=== PATIENT | male | born 1960 | race Caucasian/White ===

== ENCOUNTER 2017-11-28 16:45 | Emergency (ER) | payer SELFPAY ==
[~2017-11-28] VITALS: Ht 175.3 cm; Wt 87.0 kg
[2017-11-28 16:51] VITALS: BP 141/68; PULSE 100; RESP 22; TEMP 98.9; O2SAT 96
[2017-11-28 17:53] VITALS: BP 130/67; PULSE 85; RESP 16; O2SAT 97
[2017-11-28] MEDS ORDERED: MORPHINE SULFATE 4 MG/ML INJ IV PUSH ONE (18:00)
[2017-11-28] MEDS ORDERED: CLINDAMYCIN 600 MG/NS PREMIX 50 ML IV ONE (18:00)
[2017-11-28] MEDS ORDERED: METOCLOPRAMIDE HCL 10 MG/2 ML VIAL IV PUSH ONE (18:00)
[2017-11-28] MEDS ORDERED: KETOROLAC TROMETHAMINE 30 MG/ML (IVP) VIAL IV PUSH ONE (18:00)
[2017-11-28 18:23] LABS: AUTOMATED NEUTROPHIL # 8.7 TH/MM3 (1.8-7.7); BASOPHIL % 0.4 % (0.0-2.0); EOSINOPHIL # 0.2 TH/MM3 (0-0.4); EOSINOPHIL % 1.7 % (0.0-4.0); HEMATOCRIT 45.5 % (39.0-51.0); HEMOGLOBIN 15.4 GM/DL (13.0-17.0); LYMPH % 18.2 % (9.0-44.0); LYMPHOCYTE # 2.2 TH/MM3 (1.0-4.8); MEAN CELL VOLUME 94.9 FL (80.0-100.0); MEAN CORPUSCULAR HEMOGLOBIN 32.2 PG (27.0-34.0); MEAN CORPUSCULAR HGB CONC 33.9 % (32.0-36.0); MEAN PLATELET VOLUME 7.9 FL (7.0-11.0); MONO % 8.5 % (0.0-8.0); NEUT % 71.2 % (16.0-70.0); PLATELET COUNT 275 TH/MM3 (150-450); RED BLOOD COUNT 4.79 MIL/MM3 (4.50-5.90); WHITE BLOOD COUNT 12.3 TH/MM3 (4.0-11.0)
[2017-11-28 18:39] LABS: BICARBONATE 23.8 MEQ/L (21.0-32.0); CALCIUM 8.2 MG/DL (8.5-10.1); CREATININE 0.76 MG/DL (0.60-1.30)
--- NOTE | 2017-11-28 19:02 | RADRPT ---
EXAM DATE: 11/28/2017 6:30 PM EDT AGE/SEX: 56 years / Male INDICATIONS: Pain in right lower leg anterior. Fell 1 week ago. Swelling. Abrasion. CLINICAL DATA: This is the patient's initial encounter. Patient reports that signs and symptoms have been present for 1 week and indicates a pain score of 8/10. MEDICAL/SURGICAL HISTORY: None. None. COMPARISON: No prior exams available for comparison. FINDINGS: Bony structures are intact and in normal alignment. Osseous density is normal. Soft tissues are unre markable. No radiopaque foreign bodies seen. CONCLUSION: No acute bony abnormality. Electronically signed by: Ilia Jeffery MD 11/28/2017 7:01 PM EDT
--- NOTE | 2017-11-28 20:50 | RADRPT ---
EXAM DATE: 11/28/2017 8:37 PM EDT AGE/SEX: 56 years / Male INDICATIONS: Right leg swelling. CLINICAL DATA: This is the patient's initial encounter. Patient reports that signs and symptoms have been present for 1 day and indicates a pain score of 9/10. MEDICAL/SURGICAL HISTORY: . Right leg swelling. ADHD. None. COMPARISON: No prior exams available for comparison. TECHNIQUE: Venous ultrasound of both lower extremities was performed from the inguinal ligament to t he proximal calf. Real-time, color Doppler and spectral tracing, compression and augmentation techni ques were used. FINDINGS: No evidence of deep venous thrombosis in the right lower extremity including the femoral v ein, popliteal vein, peroneal and posterior tibial veins. CONCLUSION: 1. Negative right lower extremity DVT study. Electronically signed by: Ilia Jeffery MD 11/28/2017 8:49 PM EDT
--- NOTE | 2017-11-28 21:31 | PD ---
Data Data Last Documented VS Vital Signs Date Time Temp Pulse Resp B/P (MAP) Pulse Ox O2 Delivery O2 Flow Rate FiO2 11/28/17 22:59 11/28/17 17:53 85 16 97 Nasal Cannula 11/28/17 16:51 98.9 Orders Orders Complete Blood Count With Diff (11/28/17 17:57) Basic Metabolic Panel (Bmp) (11/28/17 17:57) Blood Culture (11/28/17 17:57) Wound Culture And Gram Stain (11/28/17 17:57) Iv Access Insert/Monitor (11/28/17 17:57) Tibia/Fibula (Ap/Lat) (11/28/17 ) Clindamycin 600 Mg/Ns Premix (Cleocin 60 (11/28/17 18:00) Morphine Inj (Morphine Inj) (11/28/17 18:00) Ketorolac Inj (Toradol Inj) (11/28/17 18:00) Metoclopramide Inj (Reglan Inj) (11/28/17 18:00) Lactic Acid Sepsis Protocol (11/28/17 17:57) Us Leg Venous Doppler (11/28/17 ) Ed Discharge Order (11/28/17 21:47) Labs Laboratory Tests Test 11/28/17 17:53 11/28/17 18:05 White Blood Count 12.3 TH/MM3 Red Blood Count 4.79 MIL/MM3 Hemoglobin 15.4 GM/DL Hematocrit 45.5 % Mean Corpuscular Volume 94.9 FL Mean Corpuscular Hemoglobin 32.2 PG Mean Corpuscular Hemoglobin Concent 33.9 % Red Cell Distribution Width 14.0 % Platelet Count 275 TH/MM3 Mean Platelet Volume 7.9 FL Neutrophils (%) (Auto) 71.2 % Lymphocytes (%) (Auto) 18.2 % Monocytes (%) (Auto) 8.5 % Eosinophils (%) (Auto) 1.7 % Basophils (%) (Auto) 0.4 % Neutrophils # (Auto) 8.7 TH/MM3 Lymphocytes # (Auto) 2.2 TH/MM3 Monocytes # (Auto) 1.0 TH/MM3 Eosinophils # (Auto) 0.2 TH/MM3 Basophils # (Auto) 0.0 TH/MM3 CBC Comment DIFF FINAL Differential Comment Blood Urea Nitrogen 9 MG/DL Creatinine 0.76 MG/DL Random Glucose 82 MG/DL Calcium Level 8.2 MG/DL Sodium Level 141 MEQ/L Potassium Level 3.8 MEQ/L Chloride Level 107 MEQ/L Carbon Dioxide Level 23.8 MEQ/L Anion Gap 10 MEQ/L Estimat Glomerular Filtration Rate 106 ML/MIN Lactic Acid Level 1.7 mmol/L MDM Supervised Visit with JESSICA: Yes Narrative Course I, Dr. Sellers, have reviewed the advance practice practitioner's documentation and am in agreement, met with the patient face to face, made the diagnosis, and the medical decision making was done by me. *My assessment and Findings: Patient seen and examined by me in addition to Edward Mcghee, minimal abscess to the anterior right lower extremity, there is some edema and erythema spreading from this area, he appears well in obvious distress and is suitable for an outpatient trial of antibiotics. Discussed follow-up with a primary care physician and return to ED criteria. Diagnosis Primary Impression: Cellulitis of right leg Scripts Cephalexin (Keflex) 500 Mg Cap 500 MG PO Q8H for Infection for 14 Days, #42 CAP 0 Refills Prov: Steven Sellers MD 11/28/17 Clindamycin (Clindamycin) 300 Mg Cap 300 MG PO Q8HR for Infection for 14 Days, CAP 0 Refills Prov: Steven Sellers MD 11/28/[address] (Diclofenac Sodium DR) 75 Mg Tabdr 75 MG PO BID Y for PAIN SCALE 1 TO 10, #30 TAB 0 Refills Prov: Steven Sellers MD 11/28/17 Condition: Stable Steven Sellers MD Nov 28, 2017 21:31
[2017-11-28] MEDS ORDERED: DICL75TA PO (21:35)
[2017-11-28] MEDS ORDERED: CEPH-460 PO (21:35)
[2017-11-28] MEDS ORDERED: CLIN300C5 PO (21:35)
--- NOTE | 2017-11-28 21:56 | PD ---
HPI Chief Complaint: Skin Problem Time Seen by Provider: 17:51 Travel History International Travel<30 days: No Contact w/Intl Traveler<30days: No Traveled to known affect area: No History of Present Illness HPI 56-year-old male that presents to the ED for evaluation of skin issue to his right leg. Per patient he had an injury about a week ago and he did not think much of it. He had some swelling and bruising. He had an abrasion to the area and then for the past 2 days has been noting more swelling and pain. Per patient he feels like a burning sensation. He denies any chest pain or shortness of breath. He states that the pain is mostly to the anterior aspect of the leg. Warm to the touch. Has been draining. No allergies to medication. No chest pain or shortness of breath. No fevers chills or sweats. Pain per patient is 6 out of 10. Gets worse with weightbearing. Able to ambulate with the work. has no allergies to medication. No other medical issues. Has not seen anybody for this. PFSH Past Medical History ADHD: Yes Past Surgical History Surgical History: No Previous Surgery Social History Alcohol Use: Yes Tobacco Use: Yes Substance Use: No (marijuana) Allergies-Medications (Allergen,Severity, Reaction): Coded Allergies: No Known Allergies (Verified Allergy, Unknown, 11/28/17) Reported Meds & Prescriptions Reported Meds & Active Scripts Active Keflex (Cephalexin) 500 Mg Cap 500 Mg PO Q8H 14 Days Clindamycin (Clindamycin HCl) 300 Mg Cap 300 Mg PO Q8HR [address] (Diclofenac Sodium) 75 Mg Tabdr 75 Mg PO BID PRN Review of Systems Except as stated in HPI: all other systems reviewed are Neg Physical Exam Narrative GENERAL: SKIN: Warm and dry. Patient has 1+ pitting edema in the right leg compared to the left. Patient does have swelling and pain on the anterior aspect of the right leg. Area of abrasion where has purulence is about 1 cm in diameter with erythema which is about 3-4 cm in diameter. Warm to the touch. No other sign of infection noted. No abscess noted. No purulence noted. No lymphadenopathy noted. HEAD: Atraumatic. Normocephalic. EYES: Pupils equal and round. No scleral icterus. No injection or drainage. ENT: No nasal bleeding or discharge. Mucous membranes pink and moist. Tongue is midline. No uvula deviation. NECK: Trachea midline. No JVD. CARDIOVASCULAR: Regular rate and rhythm. No murmurs, S3, S4. RESPIRATORY: No accessory muscle use. Clear to auscultation. Breath sounds equal bilaterally. GASTROINTESTINAL: Abdomen soft, non-tender, nondistended. Hepatic and splenic margins not palpable. MUSCULOSKELETAL: Extremities without clubbing, cyanosis, or edema. No obvious deformities. Full range of motion of the upper and lower extremities bilaterally. 2+ pulses bilaterally. NEUROLOGICAL: Awake and alert. No obvious cranial nerve deficits. Motor grossly within normal limits. Five out of 5 muscle strength in the arms and legs. Normal speech. PSYCHIATRIC: Appropriate mood and affect; insight and judgment normal. Data Data Last Documented VS Vital Signs Date Time Temp Pulse Resp B/P (MAP) Pulse Ox O2 Delivery O2 Flow Rate FiO2 11/28/17 17:53 85 16 130/67 (88) 97 Nasal Cannula 11/28/17 16:51 98.9 Orders Orders Complete Blood Count With Diff (11/28/17 17:57) Basic Metabolic Panel (Bmp) (11/28/17 17:57) Blood Culture (11/28/17 17:57) Wound Culture And Gram Stain (11/28/17 17:57) Iv Access Insert/Monitor (11/28/17 17:57) Tibia/Fibula (Ap/Lat) (11/28/17 ) Clindamycin 600 Mg/Ns Premix (Cleocin 60 (11/28/17 18:00) Morphine Inj (Morphine Inj) (11/28/17 18:00) Ketorolac Inj (Toradol Inj) (11/28/17 18:00) Metoclopramide Inj (Reglan Inj) (11/28/17 18:00) Lactic Acid Sepsis Protocol (11/28/17 17:57) Us Leg Venous Doppler (11/28/17 ) Ed Discharge Order (11/28/17 21:47) Labs Laboratory Tests Test 11/28/17 17:53 11/28/17 18:05 White Blood Count 12.3 TH/MM3 Red Blood Count 4.79 MIL/MM3 Hemoglobin 15.4 GM/DL Hematocrit 45.5 % Mean Corpuscular Volume 94.9 FL Mean Corpuscular Hemoglobin 32.2 PG Mean Corpuscular Hemoglobin Concent 33.9 % Red Cell Distribution Width 14.0 % Platelet Count 275 TH/MM3 Mean Platelet Volume 7.9 FL Neutrophils (%) (Auto) 71.2 % Lymphocytes (%) (Auto) 18.2 % Monocytes (%) (Auto) 8.5 % Eosinophils (%) (Auto) 1.7 % Basophils (%) (Auto) 0.4 % Neutrophils # (Auto) 8.7 TH/MM3 Lymphocytes # (Auto) 2.2 TH/MM3 Monocytes # (Auto) 1.0 TH/MM3 Eosinophils # (Auto) 0.2 TH/MM3 Basophils # (Auto) 0.0 TH/MM3 CBC Comment DIFF FINAL Differential Comment Blood Urea Nitrogen 9 MG/DL Creatinine 0.76 MG/DL Random Glucose 82 MG/DL Calcium Level 8.2 MG/DL Sodium Level 141 MEQ/L Potassium Level 3.8 MEQ/L Chloride Level 107 MEQ/L Carbon Dioxide Level 23.8 MEQ/L Anion Gap 10 MEQ/L Estimat Glomerular Filtration Rate 106 ML/MIN Lactic Acid Level 1.7 mmol/L MDM Medical Decision Making Medical Screen Exam Complete: Yes Emergency Medical Condition: Yes Medical Record Reviewed: Yes Interpretation(s) CBC & BMP Diagram 11/28/17 17:53 Calcium Level 8.2 L Last Impressions Tibia/Fibula X-Ray 11/28/17 0000 Signed Impressions: CONCLUSION: No acute bony abnormality. Lower Extremity Ultrasound 11/28/17 0000 Signed Impressions: CONCLUSION: 1. Negative right lower extremity DVT study. Differential Diagnosis Cellulitis versus infected wound versus fracture versus DVT Narrative Course 56-year-old male the presents to the ED for evaluation of infection to his right leg. Patient was properly examined and was found to have signs and symptoms consistent with appears to be infected wound. Labs and imaging order. Labs and imaging were essentially unremarkable other than for elevated white blood cell count slightly. Case was discussed with my attending Dr. Sellers who evaluated the patient himself and agrees the patient can be discharged with oral antibiotics. Patient was given IV clindamycin here. Given prescription for this. Close follow-up with PCP. See ED of worsening symptoms. Diagnosis Primary Impression: Cellulitis of right leg Patient Instructions: General Instructions, Narcotic given in the ED Additional Instructions: Keep area covered. Change dressings daily. Take medications as prescribed. Recheck in 48 hours if no improvement. See ED if worsening symptoms. Med/Other Pt SpecificInfo: Prescription(s) given, Wound Care Scripts Cephalexin (Keflex) 500 Mg Cap 500 MG PO Q8H for Infection for 14 Days, #42 CAP 0 Refills Prov: Steven Sellers MD 11/28/17 Clindamycin (Clindamycin) 300 Mg Cap 300 MG PO Q8HR for Infection for 14 Days, CAP 0 Refills Prov: Steven Sellers MD 11/28/[address] (Diclofenac Sodium DR) 75 Mg Tabdr 75 MG PO BID Y for PAIN SCALE 1 TO 10, #30 TAB 0 Refills Prov: Steven Sellers MD 11/28/17 Disposition: 01 DISCHARGE HOME Condition: Stable Edward Mcghee Nov 28, 2017 21:56
== END 2017-11-28 23:34 | disposition home or self-care (01) ==
LOC: NEPE 16:45
DX: L03.115 Cellulitis of right lower limb (principal); A49.01 Methicillin susceptible Staphylococcus aureus infection, unspecified site; M79.89 Other specified soft tissue disorders; F90.9 Attention-deficit hyperactivity disorder, unspecified type; Z79.899 Other long term (current) drug therapy; Z72.0 Tobacco use
CPT/HCPCS: 73590; 80048; 83605; 85025; 86403; 87040; 87070; 87186; 93971; 96365; 96375; 99285; J1885; J2270; J2765; 87205